=== PATIENT | male | born 1950 | race Caucasian/White ===

== ENCOUNTER 2020-10-02 10:17 | Emergency (ER) | payer MEDICARE, OTHER ==
[2020-10-02] MEDS ORDERED: ALBUTEROL SULFATE HFA (90 MCG/PUFF) 8 GM MDI (1 MDI/ER DISP) IH ONE (11:24)
[2020-10-02] MEDS ORDERED: METHYLPREDNISOLONE INJ 125 MG/2 ML SDV IV ONE (11:24)
--- NOTE | 2020-10-02 11:24 | ER Document Report ---
ED General - General Chief Complaint: Cough Stated Complaint: COUGH Time Seen by Provider: 10/02/20 11:16 Mode of Arrival: Ambulatory Information source: Patient - HPI Notes: 69-year-old male non-smoker comes in complaining of severe cough that he cannot control. Has some dyspnea on exertion. Denies fever chills. Denies exposure to illness. No travel outside the area. Otherwise in his usual state of health. Denies any chest pain. - Related Data Allergies/Adverse Reactions: No Known Allergies Allergy (Unverified 10/02/20 10:49) Home Medications: Omeprazole, Proglitazone, Lisinopril, Tamsulosin, Januvia, Metformin, Glipizide, Naproxen, Aspirin Past Medical History - General Information source: Patient - Social History Smoking Status: Never Smoker Family History: Reviewed & Not Pertinent - Medical History Medical History: Other Notes: Past medical history as documented in the electronic health record is reviewed. - Past Medical History Cardiac Medical History: Reports: Hx Hypercholesterolemia, Hx Hypertension Endocrine Medical History: Reports: Hx Diabetes Mellitus Type 2 Past Surgical History: Reports: Hx Orthopedic Surgery Review of Systems - Review of Systems Notes: All other systems reviewed are negative or noncontributory except as noted the present illness. Physical Exam - Vital signs Vitals: Temp Pulse Resp BP Pulse Ox 98.8 F 97 18 140/65 H 89 L 10/02/20 10:42 10/02/20 10:42 10/02/20 10:42 10/02/20 10:42 10/02/20 10:42 - Notes Notes: General: Elderly bearded male coughing frequently but in no acute distress. Vital signs and nursing chief complaint are reviewed. HEENT: Grossly normal to inspection. Neck: Supple no nodes trachea midline. Chest: Normal configuration. Lungs have fair air entry bilaterally. Patient is a frequent dry cough. He has fine faint wheezing predominantly in the right upper lobe although there is some throughout all lung pederson. No rales or rhonchi are heard. Heart: Regular rate and rhythm without murmur rub or gallop. 1 PVC was heard. Abdomen: Soft nontender no mass organomegaly. Extremities: Without clubbing cyanosis edema or deformity. Skin: Warm moist good turgor no rashes. Neuro: No focal neuro deficits noted. Course - Re-evaluation Re-evalutation: 10/02/20 15:06 Patient improved with Tessalon and hydration with steroids and his albuterol inhaler. His chest x-ray was clear. His rapid Covid antigen is negative. I think he can be safely discharged home on azithromycin, short course of prednisone, Tessalon Perles, and continue to use his albuterol inhaler. He should follow-up with his primary care provider in 3 to 4 days for recheck. He should return sooner if any concerning symptoms develop. - Vital Signs Vital signs: Temp Pulse Resp BP Pulse Ox 98.8 F 97 18 140/65 H 93 10/02/20 10:42 10/02/20 10:42 10/02/20 10:42 10/02/20 10:42 10/02/20 10:42 - Laboratory Results Result Diagrams: 10/02/20 10:30 Laboratory Results Interpreted: 10/02/20 10:30 RBC 5.84 H MCV 74 L MCH 24.3 L RDW 16.4 H Lymph % (Auto) 5.8 L Seg Neutrophils % 88.3 H Critical Laboratory Results Reviewed: No Critical Results - Radiology Results Critical Radiology Results Reviewed: No Critical Results Discharge - Discharge Clinical Impression: Bronchitis Condition: Good Disposition: HOME, SELF-CARE Instructions: COVID-19 Guidance for Persons Under Investigation Additional Instructions: Prescriptions for a azithromycin which is an antibiotic, prednisone for inflammation and Tessalon for cough have been sent to your pharmacy. Please pick these up and take them according to label directions. You should go home with the inhaler that you used here. Use it 2 puffs 4 times a day. Follow-up with your doctor in 3 to 4 days for recheck. Return to the emergency department sooner if your symptoms worsen or if any other concerning symptoms develop. We will call you if your Covid test is positive. Prescriptions: Benzonatate [Tessalon Perles 100 mg Capsule] 100 mg PO Q8HP PRN #40 capsule PRN Reason: Prednisone [Deltasone 20 mg Tablet] 2 tab PO DAILY 5 Days #10 tablet Azithromycin [Zithromax 250 mg Tablet] 250 mg PO ASDIR PRN #6 tablet PRN Reason:
[2020-10-02 11:30] LABS: ABSOLUTE LYMPHOCYTES (AUTO) 0.5 10^3/uL (0.5-4.7); ABSOLUTE MONOCYTES (AUTO) 0.5 10^3/uL (0.1-1.4); ABSOLUTE NEUT (AUTO) 7.2 10^3/uL (1.7-8.2); BASOPHILS % (AUTO) 0.1 % (0-2); HEMATOCRIT 43.3 % (37.9-51.0); HEMOGLOBIN 14.2 g/dL (13.5-17.0); LYMPHOCYTES % (AUTO) 5.8 % (13-45); MEAN CORPUSCULAR HEMOGLOBIN 24.3 pg (27.0-33.4); MEAN CORPUSCULAR HGB CONC 32.8 g/dL (32.0-36.0); MEAN CORPUSCULAR VOLUME 74 fl (80-97); MONOCYTES % (AUTO) 5.8 % (3-13); PLATELET COUNT 189 10^3/uL (150-450); RED BLOOD COUNT 5.84 10^6/uL (4.35-5.55); RED CELL DISTRIBUTION WIDTH 16.4 % (11.5-14.0); SEGMENTED NEUTROPHILS % (AUTO) 88.3 % (42-78); TOTAL CELLS COUNTED % (AUTO) 100 %; WHITE BLOOD COUNT 8.1 10^3/uL (4.0-10.5)
--- NOTE | 2020-10-02 12:15 | RADIOLOGY REPORT (SQ) ---
EXAM DESCRIPTION: CHEST SINGLE VIEW IMAGES COMPLETED DATE/TIME: 10/02/2020 11:42 am REASON FOR STUDY: Cough, wheezing COMPARISON: None. EXAM PARAMETERS: NUMBER OF VIEWS: One view. TECHNIQUE: Single frontal radiographic view of the chest acquired. RADIATION DOSE: NA LIMITATIONS: None. FINDINGS: LUNGS AND PLEURA: No opacities, masses or pneumothorax. No pleural effusion. MEDIASTINUM AND HILAR STRUCTURES: No masses. Contour normal. HEART AND VASCULAR STRUCTURES: Heart normal in size. Normal vasculature. BONES: No acute findings. HARDWARE: None in the chest. OTHER: No other significant finding. IMPRESSION: NO ACUTE RADIOGRAPHIC FINDING IN THE CHEST. TECHNICAL DOCUMENTATION: JOB ID: [id number] 2010 [employer]- All Rights Reserved Reading location - IP/workstation name: [email or web address]
[2020-10-02] MEDS ORDERED: BENZONATATE 100 MG CAPSULE PO ONE (13:05)
[2020-10-02 13:22] LABS: A TYPE INFLUENZA AG NEGATIVE (NEGATIVE); B INFLUENZA AG NEGATIVE (NEGATIVE)
[2020-10-02] MEDS ORDERED: NORMAL SALINE 1000 ML 1,000 ML IV ONE (13:48)
[2020-10-02 15:20] VITALS: BP 154/59
== END 2020-10-02 15:43 | disposition home or self-care (01) ==
LOC: ER 10:17
DX: U07.1 COVID-19 (principal); J40 Bronchitis, not specified as acute or chronic; R05 Cough; R06.2 Wheezing; E11.9 Type 2 diabetes mellitus without complications; I10 Essential (primary) hypertension; Z79.899 Other long term (current) drug therapy; Z79.82 Long term (current) use of aspirin; Z79.84 Long term (current) use of oral hypoglycemic drugs; Z79.1 Long term (current) use of non-steroidal anti-inflammatories (NSAID)
CPT/HCPCS: 99284; 96361; 96374; 36415; 85025; 87804; 71045; U0003; A9270 ×2; J2930; J7030; C9803; 87635; J3490